=== PATIENT | male | born 1950 | race Caucasian/White ===

== ENCOUNTER → 2017-04-15 | Outpatient (CLI) | payer OTHER | LOC: FIMAGING 10:05 | PROVIDERS: ATTEND Orthopaedic Surgery | DX: M75.112 Incomplete rotator cuff tear or rupture of left shoulder, not specified as traumatic (principal); M19.012 Primary osteoarthritis, left shoulder; M75.52 Bursitis of left shoulder; M25.412 Effusion, left shoulder; M75.22 Bicipital tendinitis, left shoulder; M75.82 Other shoulder lesions, left shoulder; M25.512 Pain in left shoulder ==